=== PATIENT | male | born 1955 | race Caucasian/White ===

== ENCOUNTER 2016-11-19 23:15 | Emergency (ER) | payer MEDICAID | END 2016-11-20 00:15 | disposition home or self-care (01) | LOC: CED 23:15 | DX: K91.840 Postprocedural hemorrhage of a digestive system organ or structure following a digestive system procedure (principal) | CPT/HCPCS: 99282 ==

== ENCOUNTER → 2016-11-19 | Day surgery (SDC) | payer MEDICAID ==
[~2016-11-19] MED LIST: GREEN TEA EXTR250 MG PO; LISINOPRIL10 MG PO; NORVASC PO; [UNRECOGNIZED DRUG - OTHER]; [UNRECOGNIZED DRUG - OTHER] PO
--- NOTE | ~2016-11-19 | OR ---
Unit #: [id number] #: [id number] Patient: EVELYN HERNANDEZ [id number] [address] [place], [place] [address] [id number] O MR#: [id number] NAME: EVELYN HERNANDEZ ROOM: Date of Procedure: 11/19/2016 Admission Date: 11/19/2016 Surgeon: Ashok Fritz Jr., M.D. : 1955 Attending Physician: Ashok Fritz Jr., M.D. Referring Physician: Ashok Fritz Jr., M.D. Primary Care Physician: Solo Ko M.D. OPERATIVE REPORT INDICATIONS FOR PROCEDURE The patient is a 61-year-old white male who has been having intermittent midepigastric and right upper quadrant abdominal pain, and it has been worked up and noted to have evidence of gallstones with probable chronic cholecystitis. He is brought in at this time for laparoscopic cholecystectomy at his request. He understands the procedure including the risks, including that of common bile duct injury, biliary leak and bleeding, and intra-abdominal organ injury, and consents. Preoperative liver function tests are normal. PREOPERATIVE DIAGNOSIS Chronic cholecystitis with cholelithiasis. POSTOPERATIVE DIAGNOSIS Severe cholecystitis with very large gallstone and tenseness of the gallbladder with multiple adhesions and wrapping of the omentum around the gallbladder. There was no evidence of a recurrent right inguinal hernia. ANESTHESIA General with endotracheal intubation and 0.5% Marcaine with epinephrine locally in the port sites. PROCEDURE PERFORMED Laparoscopic lysis of adhesions requiring 20 minutes with laparoscopic cholecystectomy. DESCRIPTION OF PROCEDURE The patient was positioned in a supine position. After being anesthetized and intubated, he was prepped and draped in a routine fashion for a laparoscopic cholecystectomy. A small supraumbilical incision was made approximately 1 cm in length. This was carried down to the fascia. The fascia in the umbilicus was lifted with a towel clip and a Veress needle introduced in the abdomen. The abdomen was then inflated with CO2 gas. A 5-mm port was introduced in the abdomen followed by the camera and there was no evidence of any injury related to introduction of the Veress needle or the port. Brief intra-abdominal exploration was carried out. There was no evidence of recurrent inguinal hernia, although the patient had been complaining of some intermittent right inguinal pain and had a previous inguinal hernia. The gallbladder appeared to be both subacutely and chronically inflamed with a large stone, at least one. Two 5-mm ports were placed laterally and an 11-mm port just to the right of the upper midline. The gallbladder was then grasped after it was aspirated. Unit #: [id number] #: [id number] Patient: EVELYN HERNANDEZ Approximately 40 mL were aspirated and sent for culture. The bowel appeared greenish vincent. After this was complete, the gallbladder was grasped and multiple adhesions were dissected free with both hook scissors, blunt dissection, and the hook cautery. This required approximately 20 minutes to mobilize the gallbladder from all the adhesions wrapping around it. After this was completed, the cystic duct was identified in the triangle of Calot, was isolated, hemo-clipped x4, and divided approximately a cm from the common duct. The common duct appeared normal. The cystic artery was identified, hemo-clipped x3, and divided. There were some small dilated lymphatics, which were also hemo-clipped and divided. The gallbladder was removed from its bed with the hook cautery using a current of 20 and there were significant inflammatory changes posterior to the gallbladder and the gallbladder bed. After dissecting the gallbladder off the liver, it was placed in an Endo Catch bag and brought out through the larger port site after the port site was extended an additional 2 cm or so. The specimen was sent to Pathology. The port to the right of the upper midline was replaced and the subhepatic space irrigated. A small amount of bile spilled during manipulation of the gallbladder was then removed and the gallbladder bed was checked. There was no evidence of any bleeding from it. The clips on cystic artery and cystic duct were intact with no evidence of any leak or bleeding. After hemostasis was again noted, the CO2 was expressed from the abdomen. There was no evidence of any bleeding from the port sites or removal of the ports. The fascia in the larger port site was approximated with [id number] Vicryl sutures. Three separate sutures were used. The wounds were irrigated, and after hemostasis achieved with Bovie cautery, skin edges were approximated with stainless-steel skin clips, skin stapling device. Sterile dressings were applied externally. Estimated blood loss was less than 150 mL. The patient received less than 2000 mL of crystalloid solution during the procedure. Sponge and instrument counts were correct x3. No drains were used. No complications. The patient was taken to recovery room with stable vital signs and in satisfactory condition. Dictated by... Ashok Fritz Jr., M.D. JMB/joann TD: 11/20/2016 04:01 JOB #: [id number] OPERATIVE REPORT X Ashok Fritz MD X PROCEDURE OPERATIVE NOTE
== END | disposition home or self-care (01) ==
LOC: CSUR 07:03
DX: K80.10 Calculus of gallbladder with chronic cholecystitis without obstruction (principal); K82.8 Other specified diseases of gallbladder; F17.210 Nicotine dependence, cigarettes, uncomplicated; Z98.890 Other specified postprocedural states
CPT/HCPCS: 87070; 87075; 87205; 88304; J0330; J0690; J1100; J1610; J1650; J1885; J2250; J2710; J3010

== ENCOUNTER 2016-11-26 11:18 | Emergency (ER) | payer MEDICAID ==
--- NOTE | ~2016-11-26 | CT4 ---
[facility] A Service of [facility] & [facility] RADIOLOGY TEXT RESULTS PATIENT: EVELYN HERNANDEZ LOCATION: [facility] : 55 UNIT #: [id number] AGE: [address]: Janice Dumont MD SEX: M ORDER DR: [id number] [facility] [address] [place], [place] [address] [id number] E MR#: [id number] Acc #: [id number] NAME: EVELYN HERNANDEZ : 1955 SEX: M STUDY DATE/TIME: 11/26/2016 14:14 UNIT: LYNN ROOM: STUDY DESCRIPTION: CT Abd and Pelv Wo Cont Attending Physician: Janice Dumont M.D. Ordering Physician: Janice Dumont M.D. Primary Care Physician: Solo Ko M.D. MEDICAL IMAGING REPORT This report is preliminary unless electronic signature is present ADDENDUM The previous CT abdomen and pelvis without contrast performed at [facility] dated 07/05/2016 has been submitted for comparison. The 1 cm hyperdense lesion in the posterior left mid- to lower renal pole is a stable finding since 07/05/2016. Once again, hemorrhagic or proteinaceous cyst versus solid renal mass remain in the differential, particularly given that only 5 months of stability can be documented. Follow-up CT or MRI abdomen without and with contrast renal mass protocol would be recommended. The previously described tiny right lower lobe lung nodules are not visualized on today's examination, likely obscured by atelectatic changes on the current exam. Stable low-density nodularity right adrenal gland, once again in keeping with benign adenoma. JOB: [id number] Dictated by... Samantha Stovall M.D. THIS IS AN ELECTRONICALLY VERIFIED REPORT Samantha Stovall M.D. at 03/14/2017 1:22 PM SOBIA/jeremías TD: 03/11/2017 19:55 JOB #: [id number] MEDICAL IMAGING REPORT Page 1 of 1 COPY
[2016-11-26 11:55] LABS: BASOPHIL# 0.1 X10e3 (0-0.3); BASOPHIL% 0.7 % (0-2.5); EOSINOPHIL# 0.1 X10e3 (0-0.7); EOSINOPHIL% 1.3 % (0.0-7.0); HEMOGLOBIN 12.6 gm/dL (13.0-16.0); LYMPHOCYTE# 1.5 X10e3 (1.0-3.5); LYMPHOCYTE% 13.7 % (17.0-45.0); MEAN CELL VOLUME 89.2 FL (83-96); MEAN CORPUSCULAR HEMOGLOBIN 29.6 PG (28-34); MEAN CORPUSCULAR HGB CONC 33.2 g/dL (30-36); MEAN PLATELET VOLUME 8.2 FL (6.5-11.5); MONOCYTE# 0.9 X10e3 (0-1.0); MONOCYTE% 8.7 % (3.0-12.0); NEUTROPHIL# 8.1 X10e3 (1.5-7.1); NEUTROPHIL% 75.6 % (40-75); PLATELET COUNT 305 X10e3 (140-420); RED BLOOD COUNT 4.26 X10e (3.90-5.60); RED CELL DISTRIBUTION WIDTH 14.3 % (11.0-15.5); WHITE BLOOD COUNT 10.7 X10e3 (4.0-10.5)
[2016-11-26 11:56] LABS: DIFF IND NO
[2016-11-26 12:14] LABS: PROTHROMBIN TIME (PATIENT) 10.7 SECONDS (9.6-11.5)
[2016-11-26 12:22] LABS: BUN/CREATININE RATIO 8.57; CALCIUM SERUM 8.9 mg/dL (8.4-10.2); CREATININE SERUM 1.4 mg/dL (0.6-1.4); GLOM FILT RATE Estimated 54.8 mL/min (>60); POTASSIUM 4.1 mmol/L (3.5-5.1)
== END 2016-11-26 16:42 | disposition home or self-care (01) ==
LOC: CED 11:18
PROVIDERS: Student in an Organized Health Care Education/Training Program
DX: K91.870 Postprocedural hematoma of a digestive system organ or structure following a digestive system procedure (principal); Z90.49 Acquired absence of other specified parts of digestive tract
CPT/HCPCS: 36415; 74176; 80048; 85025; 85610; 85730; 99284

== ENCOUNTER 2016-12-26 20:56 | Emergency (ER) | payer MEDICAID ==
--- NOTE | ~2016-12-26 | CR230 ---
[facility]. [facility] A Service of [facility] & [facility] RADIOLOGY TEXT RESULTS PATIENT: EVELYN HERNANDEZ LOCATION: SED : 55 UNIT #: [id number] AGE: [address]: Carlos Enrique Shipley MD SEX: M ORDER DR: [id number] [place] [address] [id number] E MR#: [id number] Acc #: [id number] NAME: EVELYN HERNANDEZ : 1955 SEX: M STUDY DATE/TIME: 12/26/2016 21:07 UNIT: SED ROOM: STUDY DESCRIPTION: CR Shoulder Min 2 View Rt Attending Physician: Carlos Enrique Shipley M.D. Ordering Physician: Carlos Enrique Shipley M.D. Primary Care Physician: Solo Ko M.D. MEDICAL IMAGING REPORT This report is preliminary unless electronic signature is present. EXAM Shoulder right, minimum 2 views, 12/26/2016 HISTORY Pain and limited range of motion for a week. No injury. COMMENT Three views of the right shoulder are reviewed. No prior. There is at least moderate arthritis of the acromioclavicular joint. There is no acute fracture or dislocation or radiopaque foreign body suspected. 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 If more information is needed consider correlation with a MRI of the shoulder if the patient is a candidate. Dictated by... Mabel Shin M.D. THIS IS AN ELECTRONICALLY VERIFIED REPORT Mabel Shin M.D. at 12/27/2016 10:24 AM NILESH/mecca TD: 12/27/2016 03:00 JOB #: [id number] MEDICAL IMAGING REPORT Page 1 of 1
== END 2016-12-26 21:58 | disposition home or self-care (01) ==
LOC: SED 20:56
DX: S46.911A Strain of unspecified muscle, fascia and tendon at shoulder and upper arm level, right arm, initial encounter (principal); M19.011 Primary osteoarthritis, right shoulder; F17.200 Nicotine dependence, unspecified, uncomplicated; I10 Essential (primary) hypertension; Z90.49 Acquired absence of other specified parts of digestive tract; Z98.890 Other specified postprocedural states; X58.XXXA Exposure to other specified factors, initial encounter; Y92.830 Public park as the place of occurrence of the external cause
CPT/HCPCS: 73030; 99283